=== PATIENT | female | born 2000 | race Caucasian/White ===

== ENCOUNTER 2020-05-03 00:46 | Observation (INO) | payer MEDICAID ==
[~2020-05-03] VITALS: Ht 162.6 cm; Wt 122.5 kg
[2020-05-03] MEDS ORDERED: PNV1TABL50 PO (01:36)
[2020-05-03 02:16] LABS: CLARITY URINE CLEAR (CLEAR); COLOR URINE DARK YELLOW (YELLOW); KETONES URINE NEGATIVE (NEGATIVE); LEUKOCYTE ESTERASE URINE 1+ (NEGATIVE); NITRITE URINE NEGATIVE (NEGATIVE); OCCULT BLOOD URINE NEGATIVE (NEGATIVE); PROTEIN URINE TRACE (NEGATIVE)
[2020-05-03 02:19] LABS: CHLORIDE 108 mEq/L (98-107)
[2020-05-03 03:36] LABS: BASOPHILS % 0.5 % (0.0-2.0); HEMATOCRIT. 35.1 % (36.0-48.0); HEMOGLOBIN. 11.7 g/dL (12.0-16.0); LYMPHOCYTES % 16.1 % (20.0-50.0); MEAN CORPUSCULAR HEMOGLOBIN 28.8 pg (28.0-32.0); MEAN CORPUSCULAR VOLUME 85.9 fL (81.0-99.0); MEAN PLATELET VOLUME 8.1 fl (7.4-10.4); MONOCYTES % 5.7 % (2.0-8.0); NEUTROPHILS % 76.7 % (40.0-76.0); PLATELET 307 x1000/uL (130-400); RED BLOOD CELL COUNT 4.09 mill/uL (4.2-5.4); RED CELL DISTRIBUTION WIDTH 14.6 % (11.6-14.6)
[2020-05-03 05:49] LABS: PARTIAL THROMBOPLASTIN TIME 25.9 sec (23.4-31.0); PROTHROMBIN TIME 10.3 sec (9.6-11.0)
== END 2020-05-03 09:15 | disposition home or self-care (01) ==
LOC: 8 EST LDRP 00:46
PROVIDERS: ADMIT Specialist; ATTEND Specialist
DX: O62.0 Primary inadequate contractions (principal); Z3A.35 35 weeks gestation of pregnancy
CPT/HCPCS: 36415; 59025; 76815; 76818; 80053; 81003; 84550; 85025; 85384; 85610; 85730; G0378; 99281

== ENCOUNTER 2020-05-20 20:37 | Observation (INO) | payer MEDICAID ==
[~2020-05-20 20:37] MED LIST: PNV1TABL50 PO
[2020-05-20 22:13] LABS: CLARITY URINE CLOUDY (CLEAR); COLOR URINE YELLOW (YELLOW); KETONES URINE NEGATIVE (NEGATIVE); LEUKOCYTE ESTERASE URINE 1+ (NEGATIVE); NITRITE URINE NEGATIVE (NEGATIVE); OCCULT BLOOD URINE NEGATIVE (NEGATIVE); PROTEIN URINE NEGATIVE (NEGATIVE); SPECIFIC GRAVITY URINE 1.016 (1.005-1.030); UROBILINOGEN URINE 0.2 E.U./dL (0.2-1.0)
== END 2020-05-21 00:55 | disposition home or self-care (01) ==
LOC: 8 EST LDRP 20:37
PROVIDERS: ADMIT Specialist; ATTEND Specialist
DX: O36.8130 Decreased fetal movements, third trimester, not applicable or unspecified (principal); Z3A.38 38 weeks gestation of pregnancy
CPT/HCPCS: 76805; 76818; 81003; G0378; 99281

== ENCOUNTER 2020-06-05 17:07 | Inpatient (IN) | payer MEDICAID ==
[~2020-06-05] VITALS: Ht 162.6 cm; Wt 122.5 kg
[2020-06-05] MEDS ORDERED: BUTORPHANOL TARTRATE 2 MG/ML VIAL IV PRN (18:15)
[2020-06-05] MEDS ORDERED: NALOXONE HCL 0.4 MG/ML 1ML VIAL IM PRN (18:15)
[2020-06-05] MEDS ORDERED: CARBOPROST TROMETHAMINE 250 MCG/ML AMPUL IM PRN (18:15)
[2020-06-05] MEDS ORDERED: METHYLERGONOVINE MALEATE 0.2 MG/ML IM PRN (18:15)
[2020-06-05] MEDS ORDERED: LIDOCAINE HCL 1% 20ML VIAL (Pyxis) INJ INFIL SCH (18:15)
[2020-06-05] MEDS: LACTATED RINGERS 1,000 ML IV SCH (18:23)
[2020-06-05] MEDS ORDERED: DEXT 5%/LR + PITOCIN 20UNITS/L 1,000 ML IV SCH (18:27)
[2020-06-05] MEDS ORDERED: LACTATED RINGERS 1,000 ML IV SCH (18:30)
[2020-06-05 18:46] LABS: CLARITY URINE CLOUDY (CLEAR); COLOR URINE YELLOW (YELLOW); KETONES URINE 1+ (NEGATIVE); LEUKOCYTE ESTERASE URINE 1+ (NEGATIVE); NITRITE URINE NEGATIVE (NEGATIVE); OCCULT BLOOD URINE 2+ (NEGATIVE); PH URINE 5.5 (4.5-8.0); PROTEIN URINE NEGATIVE (NEGATIVE); SPECIFIC GRAVITY URINE 1.024 (1.005-1.030); UROBILINOGEN URINE 0.2 E.U./dL (0.2-1.0)
[2020-06-05 18:51] LABS: BASOPHILS % 0.6 % (0.0-2.0); EOSINOPHILS % 0.5 % (0.0-5.0); HEMATOCRIT. 35.7 % (36.0-48.0); HEMOGLOBIN. 12.2 g/dL (12.0-16.0); LYMPHOCYTES % 11.4 % (20.0-50.0); MEAN CORPUSCULAR VOLUME 84.9 fL (81.0-99.0); MEAN PLATELET VOLUME 8.5 fl (7.4-10.4); MONOCYTES % 4.6 % (2.0-8.0); NEUTROPHILS % 82.9 % (40.0-76.0); PLATELET 300 x1000/uL (130-400)
[2020-06-05 19:02] LABS: *AMPHETAMINES SCREEN URINE NEGATIVE (NEGATIVE); *BARBITURATES SCREEN URINE NEGATIVE (NEGATIVE); *BENZODIAZEPINES SCREEN URINE NEGATIVE (NEGATIVE); *COCAINE SCREEN URINE NEGATIVE (NEGATIVE); METHADONE URINE SCREEN NEGATIVE (NEGATIVE)
[2020-06-05 19:03] LABS: CANNABINOID URINE SCREEN NEGATIVE (NEGATIVE); OPIATES URINE SCREEN NEGATIVE (NEGATIVE); PHENCYCLIDINE URINE SCREEN NEGATIVE (NEGATIVE)
[2020-06-05 19:05] LABS: PARTIAL THROMBOPLASTIN TIME 24.5 sec (23.4-31.0); PROTHROMBIN TIME 10.1 sec (9.6-11.0)
[2020-06-05 19:29] LABS: HEPATITIS B SURFACE ANTIGEN NEGATIVE
[2020-06-06] MEDS: LACTATED RINGERS 1,000 ML IV SCH ×3 (00:20→07:22)
[2020-06-06] MEDS ORDERED: LIDOCAINE HCL 2%/EPINEPHRINE 1:100,000 20 ML VIAL INFIL ONE (05:00)
[2020-06-06] MEDS ORDERED: ROPIVACAINE HCL/PF EPIDURAL 200 ML EPI ONE (05:53)
[2020-06-06] MEDS ORDERED: DEXT 5%/LR + PITOCIN 20UNITS/L 1,000 ML IV SCH ×2 (06:30→15:30)
[2020-06-06] MEDS ORDERED: MISOPROSTOL 100MCG TABLET VG SCH (15:00)
[2020-06-06] MEDS ORDERED: HEMORRHOIDAL SUPP PR PRN (15:30)
[2020-06-06] MEDS ORDERED: BENZOCAINE/LANOLIN/ALOE VERA SPRAY TOP PRN (15:30)
[2020-06-06] MEDS ORDERED: IBUPROFEN 400MG TABLET PO PRN (15:30)
[2020-06-06] MEDS ORDERED: RHO(D) IMMUNE GLOBULIN 300 MCG/SYR IM PRN (15:30)
[2020-06-06] MEDS ORDERED: GLYCERIN/WITCH HAZEL LEAF MEDICATED PAD TOP PRN (15:30)
[2020-06-06] MEDS ORDERED: ACETAMINOPHEN WITH CODEINE 300/30MG TABLET PO PRN (15:30)
[2020-06-06] MEDS ORDERED: BISACODYL 10MG SUPP PR PRN (15:30)
[2020-06-06] MEDS ORDERED: DIPHENHYDRAMINE 25MG CAPSULE PO PRN (15:30)
[2020-06-06] MEDS ORDERED: LANOLIN OINT 7GM TUBE TOP PRN (15:30)
[2020-06-06] MEDS: IBUPROFEN 800MG TABLET PO PRN (19:20)
[2020-06-06 20:00] VITALS: BP 123/76
[2020-06-06 21:00] VITALS: BP 130/80
[2020-06-06] MEDS ORDERED: DOCUSATE SODIUM 100MG CAPSULE PO SCH (21:00)
[2020-06-06] MEDS: SIMETHICONE 80MG TABLET CHEW PO SCH (21:40)
[2020-06-07 04:00] VITALS: BP 116/63
[2020-06-07 06:42] LABS: BASOPHILS % 0.4 % (0.0-2.0); EOSINOPHILS % 0.6 % (0.0-5.0); HEMATOCRIT. 27.9 % (36.0-48.0); HEMOGLOBIN. 9.3 g/dL (12.0-16.0); LYMPHOCYTES % 16.6 % (20.0-50.0); MEAN CORPUSCULAR HEMOGLOBIN 28.7 pg (28.0-32.0); MEAN CORPUSCULAR VOLUME 86.1 fL (81.0-99.0); MEAN PLATELET VOLUME 8.5 fl (7.4-10.4); MONOCYTES % 6.6 % (2.0-8.0); NEUTROPHILS % 75.8 % (40.0-76.0); PLATELET 241 x1000/uL (130-400); RED BLOOD CELL COUNT 3.24 mill/uL (4.2-5.4); RED CELL DISTRIBUTION WIDTH 15.1 % (11.6-14.6)
[2020-06-07 07:28] VITALS: BP 107/61
[2020-06-07] MEDS ORDERED: NORE0.3520 MT (07:54)
[2020-06-07] MEDS ORDERED: IBUP-2030 PO (07:54)
[2020-06-07] MEDS ORDERED: FERR325T23 PO (07:54)
[2020-06-07] MEDS: SIMETHICONE 80MG TABLET CHEW PO SCH ×2 (08:00→12:50)
[2020-06-07] MEDS: PRENATAL VIT/FE FUMARATE/FA TABLET PO SCH ×2 (08:57→12:50)
[2020-06-07] MEDS: FERROUS SULFATE 325MG TABLET PO SCH ×2 (08:58→12:50)
[2020-06-07] MEDS: IBUPROFEN 800MG TABLET PO PRN (12:50)
[2020-06-07 15:07] VITALS: BP 112/62
== END 2020-06-07 15:00 | disposition home or self-care (01) | DRG 560 ==
LOC: OBSVTOIN 17:07 → 8 EST LDRP 17:07 → 8EST 06-06 17:19
PROVIDERS: ADMIT Specialist; ATTEND Specialist
PROC: 10E0XZZ Delivery of Products of Conception, External Approach (ICD-10-PCS; principal; 2020-06-05)
PROC: 0HQ9XZZ Repair Perineum Skin, External Approach (ICD-10-PCS; 2020-06-05)
PROC: 3E0R3BZ Introduction of Anesthetic Agent into Spinal Canal, Percutaneous Approach (ICD-10-PCS; 2020-06-05)
PROC: 00HU33Z Insertion of Infusion Device into Spinal Canal, Percutaneous Approach (ICD-10-PCS; 2020-06-05)
PROC: 10H07YZ Insertion of Other Device into Products of Conception, Via Natural or Artificial Opening (ICD-10-PCS; 2020-06-05)
DX: O76 Abnormality in fetal heart rate and rhythm complicating labor and delivery (principal); O99.214 Obesity complicating childbirth; O99.02 Anemia complicating childbirth; E66.9 Obesity, unspecified; O70.0 First degree perineal laceration during delivery; D64.9 Anemia, unspecified; Z88.0 Allergy status to penicillin; Z37.0 Single live birth; Z3A.41 41 weeks gestation of pregnancy
CPT/HCPCS: 36415; 80305; 81003; 85025; 86592; 86703; 86762; 86850; 86900; 87340; 99281; G0378; J0595; J2210; J2590; J2795; J3490; J7120; A4315